=== PATIENT | female | born 1940 | race Caucasian/White ===

== ENCOUNTER 2021-01-25 15:08 | Inpatient (IN) | payer OTHER, BC ==
[~2021-01-25] VITALS: Ht 170.2 cm; Wt 112.0 kg
--- NOTE | ~2021-01-25 | EMS ---
[address] [address] EMS Patient Care Report Name: AMELIA CRUZ Room #: 202-P ADM IN M.R.#: [id number] Admission: 01/25/21 Attend Phys: Sosa Calvillo MD Discharge: Date of : 42 Report #: [id number] THIS REPORT FOR: //name// Report Transmitted: 01/27/2021 11:41 EMS Care Summary [place], [place]/[facility] Incident [id number] @ 01/25/2021 14:[address] [place] [address] Patient AMELIA CRUZ Female, 80 Years 1940 Patient Address [address] [place] [id number] Patient History Hypertension (HTN),Morbid Obesity,Type 2 Diabetes,Cellulitis, Patient Allergies Penicillin allergy,Sulfa,Nickel allergy, Patient Medications Melatonin, Hubbard, Lasix, Potassium, Losartan, Nystatin, Prednisone, Diclofenac, Glipizide, Aspirin, Metformin, Chief Complaint SOB Disposition Transported No Lights/[place] Dispatch Reason Breathing Problem Transported To [facility] Narrative SCENE: ON ARRIVAL PT FOUND LYING UPRIGHT IN BED AT ADDRESS PROVIDED. PT IS AWAKE AND ALERT. STAFF REPORTS PT OXYGEN SSATS WERE IN THE 60'S AND THEY HAVE [address] [address] EMS Patient Care Report Name: AMELIA CRUZ Room #: 202-P ADM IN M.R.#: [id number] Admission: 01/25/21 Attend Phys: Sosa Calvillo MD Discharge: Date of : 42 Report #: [id number] BEEN UNABLE TO INCREASE THEM. PT IS ON 3LPM VIA NC PER NORMAL. STAFF REPORTS PT HAS BEEN LIKE THIS FOR ONE HOUR. STAFF ALSO REPORTS PT IS NORMALLY A&0X4, BUT IS NOW UNABLE TO ANSWER SOME QUESTIONS. PT SLID TO EMS STRETCHER. AMBULANCE: PT LUNG SOUNDS WHEEZY THROUGHOUT. PT PLACED ON DUONEB TREATMENT EN ROUTE. IV ATTEMPT UNSUCCESSFUL. VITALS MONITORED. NO OTHER CHANGES Initial Vitals @14:45P: 88,R: 20,BP: 142/100,Pain: 0/10,GCS: 14,Glucose: 114,SpO2: 94,Revised Trauma: 12, @15:02P: 90,R: 18,BP: 146/78,GCS: 15,SpO2: 95,Revised Trauma: 12, Assessments @14:44MENTAL:Other,SKIN:No Abnormalities,HEENT:Head/Face: No Abnormalities,Eyes: No Abnormalities,Neck/Airway: No Abnormalities,LUNG SOUNDS:General: No Abnormalities,Left Upper: No Abnormalities,Right Upper: No Abnormalities,Left Lower: No Abnormalities,Right Lower: No Abnormalities,ABDOMEN:General: No Abnormalities,Left Upper: No Abnormalities,Right Upper: No Abnormalities,Left Lower: No Abnormalities,Right Lower: No Abnormalities,PELVIS//GI:No Abnormalities,EXTREMITIES:Left Arm: No Abnormalities,Right Arm: No Abnormalities,Left Leg: No Abnormalities,Right Leg: No Abnormalities,PULSE:NEURO:No Abnormalities,@15:00MENTAL:No Abnormalities,SKIN:No Abnormalities,HEENT:Head/Face: No Abnormalities,Eyes: No Abnormalities,Neck/Airway: No Abnormalities,LUNG SOUNDS:General: No Abnormalities,Left Upper: No Abnormalities,Right Upper: No Abnormalities,Left Lower: No Abnormalities,Right Lower: No Abnormalities,ABDOMEN:General: No Abnormalities,Left Upper: No Abnormalities,Right Upper: No Abnormalities,Left Lower: No Abnormalities,Right Lower: No Abnormalities,PELVIS//GI:No Abnormalities,EXTREMITIES:Left Arm: No Abnormalities,Right Arm: No Abnormalities,Left Leg: No Abnormalities,Right Leg: No Abnormalities,PULSE:NEURO:No Abnormalities, Impression Acute Respiratory Distress (Dyspnea) Procedures @14:44ALS AssessmentResponse: UnchangedSucceeded@14:51Albuterol - 2.5 Milligrams (mg) - NebulizedResponse: Improved@14:45StretcherResponse: Unchanged@PTAOxygen FlowRate: 3 Response: UnchangedSucceeded@14:55Saline Lock 0cc (18 ga) Site: Hand-LeftResponse: UnchangedFailed@14:51Atrovent - 0.5 Milligrams (mg) - NebulizedResponse: Improved Timeline IRRIGATOR SPRINKLING SYSTEM,Oxygen FlowRate: 3 Response: UnchangedSucceeded, 14:32,Call Received 14:32,Dispatch Notified [address] [address] EMS Patient Care Report Name: AMELIA CRUZ Room #: 202-P [facility] IN .R.#: [id number] Admission: 01/25/21 Attend Phys: Sosa Calvillo MD Discharge: Date of : 42 Report #: [id number] 14:35,Dispatched 14:35,En Route 14:40,On Scene 14:43,At Patient 14:44,ALS Assessment,Response: UnchangedSucceeded, 14:45,Stretcher,Response: Unchanged 14:45,BP: 142/100 M,PULSE: 88,RR: 20 R,SPO2: 94 Ox,ETCO2: ,B,PAIN: 0,GCS: 14, 14:51,Albuterol - 2.5 Milligrams (mg) - Nebulized,Response: Improved 14:51,Atrovent - 0.5 Milligrams (mg) - Nebulized,Response: Improved 14:54,Depart Scene 14:55,Saline Lock 0cc 18 ga Site: Hand-Left,Response: UnchangedFailed, 15:02,BP: 146/78 M,PULSE: 90,RR: 18 R,SPO2: 95 Ox,ETCO2: ,BG: ,PAIN: ,GCS: 15, 15:14,At Destination 15:24,Call Closed Disclaimer v1.1 Copyright 2020 [employer] This EMS Care Summary contains data elements from the applicable legal record (which may be displayed differently). It is designed to provide pertinent information for the following purposes: continuity of care, clinical quality, and state data reporting. The complete legal record is available to ED staff and administrators of the receiving hospital in [employer]s Patient Tracker. All data is provided "as is."
[~2021-01-25 15:08] MED LIST: AMBIEN 5 MG TABL5 M1 PO; ASPIRIN325 PO; CENTRUM SILVER1 EAC4 PO; GLIPIZIDE XL5 MG PO; METFORMIN HCL500 MG PO; ZOCOR20 MG PO
[2021-01-25 15:56] LABS: BE(vivo) 14.7 mmol/L (-2 to +3); HCO3 45.6 mmol/L (22.0-26.0); PCO2 97.6 mmHg (35.0-45.0); PO2 237.4 mmHg (80.0-100.0); pH 7.287 (7.360-7.450); sO2 99.4 % (92.0-98.0)
[2021-01-25 16:07] LABS: EOSINOPHILS 3.4 % (0.0-3.0); HEMATOCRIT 37.6 % (37.0-47.0); LYMPHOCYTES 20.1 % (24.0-44.0); MCH 29.8 pg (26.0-34.0); MCHC 31.8 g/dL (28.0-37.0); MCV 93.9 fL (80.0-100.0); MONOCYTES 7.7 % (1.0-8.0); PLATELET COUNT 210 thou/uL (150-400); POLYS 67.8 % (36.0-66.0); RBC 4.01 mil/uL (4.20-5.00); RDW 20.1 % (10.5-14.5); WBC 4.5 thou/uL (4.0-11.0)
[2021-01-25 16:26] LABS: CALCIUM 7.8 mg/dL (8.5-10.1); CREATININE 1.2 mg/dL (0.6-1.0); POTASSIUM 4.2 mmol/L (3.5-5.1)
--- NOTE | 2021-01-25 16:38 | NUR ---
JUAN J SERRA SWETHA [phone]
[2021-01-25 16:40] LABS: ALBUMIN 3.1 g/dL (3.4-5.0); TOTAL BILIRUBIN 1.3 mg/dL (0.2-1.0); TOTAL PROTEIN 5.9 g/dL (6.4-8.2)
[2021-01-25 17:08] LABS: BE(vivo) 13.5 mmol/L (-2 to +3); HCO3 42.7 mmol/L (22.0-26.0); PCO2 83.1 mmHg (35.0-45.0); PO2 97.2 mmHg (80.0-100.0); pH 7.329 (7.360-7.450); sO2 96.6 % (92.0-98.0)
--- NOTE | 2021-01-25 17:29 | NUR ---
THIS RN MET WITH PT'S NIECE IN WAITING RM WHO STATED SHE NEEDED TO GIVEN MORE INFORMATION REGARDING PT'S HEALTH. NIECE CALLED ANOTHER NIECE ON THE PHONE WHO APPARENTLY "WORKS IN THE MEDICAL FILED AND A NURSE" AND KNOWS A LOT OF PT'S HEALTH INFORMATION. PER NIECE, PT WAS ADMITTED AT [facility] ON December PNUEMONIA AFTER ADMISSION AT [facility] IN SAME MONTH FOR PNEUMONIA, SEPSIS, CELLULITIS OF R LEG, BED SORE, HYPOXIA AND INSFLAMMED PERINEAL AREA. ON December, PT WAS ADMITTED AT [facility], TESTED POSITIVE FOR COVID. PT SENT TO [facility] FROM 01/06-01/16. RECEIVED 5 DAYS TRMT WITH REMDESIVIR, ALSO GOT TREATED FOR CELLULITIS OF LEFT LEG. DISCHARGED ON Jan, TO [facility]. HAD CONSISTENT ELEVATED C02 LEVELS FOR SEVERAL DAYS AT [place] WHICH THE DOCTOR AT FACILITY STATED WAS RELATED TO HER DX SLEEP APNEA. PER NIECE, PT FELL OFF FROM BED YESTERDAY, POOR APPETITE SINCE WEDNESDAY AND LOW BP TODAY 90'S/50'S. ALL THIS WERE COMMUNICATED WITH ERP.
[2021-01-25 17:31] LABS: ANISOCYTOSIS 2+
[2021-01-25 18:18] LABS: URINE BILIRUBIN 2+ (Negative); URINE BLOOD TRACE (Negative); URINE CLARITY CLEAR; URINE COLOR YELLOW; URINE GLUCOSE-RANDOM* 3+ (Negative); URINE KETONES 1+ (Negative); URINE LEUKOCYTES-REFLEX NEGATIVE (Negative); URINE NITRITE-REFLEX NEGATIVE (Negative); URINE PROTEIN (DIPSTICK) 2+ (Negative); URINE SPECIFIC GRAVITY >= 1.030 (1.005-1.035); URINE UROBILINOGEN 0.2 E.U./dl (0.2-1.0)
[2021-01-25 18:31] LABS: ICTOTEST (BILI CONFIRMATORY) Positive (Negative)
--- NOTE | 2021-01-25 18:33 | NUR ---
ML PLACED IN ER FOR LABS AND IVF
[2021-01-25 18:38] LABS: SQUAMOUS 0-3 Few /LPF (0-3)
[2021-01-25 18:39] LABS: CALCIUM OXALATE 0-3 Few /LPF (None Seen); COARSE GRANULAR CASTS 0-3 Few /LPF (None Seen); MUCUS 4-6 Moderate strn/LPF (None Seen); URINE RBC 1-2 Rare /HPF (NONE SEEN); URINE WBC-REFLEX 0-5 Rare /HPF (0-5)
[2021-01-25 19:00] LABS: APTT 22.2 Seconds (24.5-32.8); D-DIMER 1.34 ug/mLFEU (0.19-0.50); INR 1.11
--- NOTE | 2021-01-26 02:43 | NUR ---
PER Gino CHEN RN, PT DOES NOT REQUIRE COVID ISOLATION.
[2021-01-26 06:07] VITALS: BP 140/56
[2021-01-26 06:15] VITALS: BP 112/80
--- NOTE | 2021-01-26 06:15 | NUR ---
79 Y/O PT ADMITTED TO CCU FROM ER ON BIPAP. FOLLOWS SIMPLE COMMANDS. HELPS TO TURN. COCCYX AREA VERY REDDENED. PREVACARE CREAM APPLIED. ESCALONA INTACT. PROGRESSING TOWARTD GOALS WILL CONT TO MONITOR
[2021-01-26 08:00] LABS: HEMATOCRIT 35.8 % (37.0-47.0); HEMOGLOBIN 11.1 gm/dL (12.0-15.0); MCH 29.6 pg (26.0-34.0); MCV 95.3 fL (80.0-100.0); RBC 3.76 mil/uL (4.20-5.00); RDW 19.2 % (10.5-14.5); WBC 4.8 thou/uL (4.0-11.0)
[2021-01-26 08:08] LABS: CALCIUM 7.7 mg/dL (8.5-10.1); CREATININE 1.3 mg/dL (0.6-1.0); POTASSIUM 3.4 mmol/L (3.5-5.1)
[2021-01-26 11:30] VITALS: BP 129/55
[2021-01-26] MEDS ORDERED: XANAX 0.25 MG0.25 MG PO (11:44)
[2021-01-26] MEDS ORDERED: CARVEDILOL12.5 MG PO (11:45)
[2021-01-26] MEDS ORDERED: CELEXA 20 MG TA20 MG PO (11:45)
[2021-01-26] MEDS ORDERED: DEPAKOTE 250MG250 M1 PO (11:46)
[2021-01-26] MEDS ORDERED: COLACE100 MG PO (11:47)
[2021-01-26] MEDS ORDERED: LOVENOX40 MG/0.4 (11:47)
[2021-01-26] MEDS ORDERED: JARDIANCE25 MG (11:48)
[2021-01-26] MEDS ORDERED: VYZULTA5 ML (11:49)
[2021-01-26] MEDS ORDERED: COZAAR 25 MG TA25 M1 (11:49)
[2021-01-26] MEDS ORDERED: NYSTATIN1 EA10 (11:50)
[2021-01-26] MEDS ORDERED: MELATONIN3 M1 (11:50)
[2021-01-26] MEDS ORDERED: METFORMIN HCL500 M3 (11:50)
[2021-01-26] MEDS ORDERED: PROTONIX 20 MG20 MG (11:51)
[2021-01-26] MEDS ORDERED: SIMVASTATIN80 MG (11:52)
[2021-01-26] MEDS ORDERED: PREDNISOLONE ACE5 ML RT. EYE (11:52)
[2021-01-26] MEDS ORDERED: FLOMAX0.4 MG (11:52)
[2021-01-26] MEDS ORDERED: TERBINAFINE HC250 MG (11:53)
[2021-01-26] MEDS ORDERED: TRAZODONE HCL50 MG (11:53)
[2021-01-26 16:27] VITALS: BP 130/51
[2021-01-26 20:07] VITALS: BP 147/49
--- NOTE | 2021-01-27 03:23 | NUR ---
RECEIVED PATIENT ON BED, ALERT AND ORINETED X4.ON NASAL CANNULA AT 3LPM, SATURATING WELL.WITH MIDLINE AT RIGHT FOREARM INTACT.WITH ESCALONA CATHETER INTACT.NOT IN PAIN OR DISTRESS.STANDARD PRECAUTION OBSERVED.ALL NEEDS ATTENDED.FALL PREVENTION MEASURES MAINTAINED
[2021-01-27 04:55] LABS: ABSOLUTE NEUTROPHILS 3.4 thou/uL (1.4-8.2); BASOPHILS 0.1 % (0.0-2.0); EOSINOPHILS 0.1 % (0.0-3.0); HEMOGLOBIN 10.2 gm/dL (12.0-15.0); LYMPHOCYTES 9.9 % (24.0-44.0); MCH 30.1 pg (26.0-34.0); MCHC 31.9 g/dL (28.0-37.0); MCV 94.6 fL (80.0-100.0); MONOCYTES 3.8 % (1.0-8.0); PLATELET COUNT 153 thou/uL (150-400); POLYS 86.1 % (36.0-66.0); RBC 3.38 mil/uL (4.20-5.00); RDW 18.9 % (10.5-14.5)
[2021-01-27 05:06] LABS: ALBUMIN 2.8 g/dL (3.4-5.0); CALCIUM 7.4 mg/dL (8.5-10.1); CREATININE 1.1 mg/dL (0.6-1.0); MAGNESIUM 1.6 mg/dL (1.8-2.4); PHOSPHORUS 3.6 mg/dL (2.5-4.9); POTASSIUM 4.2 mmol/L (3.5-5.1); TOTAL BILIRUBIN 0.7 mg/dL (0.2-1.0); TOTAL PROTEIN 5.1 g/dL (6.4-8.2)
[2021-01-27 05:27] VITALS: BP 151/66
--- NOTE | 2021-01-27 07:32 | EKG ---
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: [place] : 1940 Requested By: Best Almaraz Order Number: [id number] MD: Ángel Macario Measurements Intervals [place] Rate: 86 P: 47 [place]: 121 QRS: -2 QRSD: 80 T: 82 QT: 456 QTc: 546 Interpretive Statements Sinus rhythm Borderline repolarization abnormality Prolonged QT interval Compared to ECG 01/04/2014 06:33:40 Prolonged QT interval now present T-wave abnormality no longer present Electronically Signed On 01-27-2021 7:32:23 CDT by Ángel Macario [email or web address] <ELECTRONICALLY SIGNED> By: Ángel Macario MD, [facility] 01/27/21 0732 1556 1556 Ángel Macario MD, FACC /EPI
[2021-01-27 07:35] VITALS: BP 118/56
[2021-01-27 11:35] VITALS: BP 106/60
--- NOTE | 2021-01-27 12:01 | NUR ---
Notification of very reddened coccyx. Admit from facility w/ SOA, hx covid. Hx diabetes, SARA, HTN, copd. On NC and tolerating meals fairly well. Wt is obese, BMI 37. Will add carb control to diet order for BG in 200s. Add 1 glucerna shake per day. Otherwise low nutrition risk
--- NOTE | 2021-01-27 12:14 | 2DMMODE ---
[facility] [place] [address] 2 D/M-MODE ECHOCARDIOGRAM Name: AMELIA CRUZ Room #: 202-P ADM IN M.R.#: [id number] Admission: 01/25/21 Attend Phys: Sosa Calvillo MD Discharge: Date of : 41 Report #: [id number] THIS REPORT FOR: cc: John Acosta MD, Shyam MD Park, Jin S. MD ~ APPROVED REPORT Study performed: 01/27/2021 10:55:08 EXAM: Comprehensive 2D, Doppler, and color-flow Echocardiogram Patient Location: Bedside Room #: 202 Status: routine BSA: 2.19 HR: 85 bpm BP: 118/56 mmHg Rhythm: NSR Other Information Study Quality: Adequate Indications Short of breath, hypoxia. Hx: known CHF. Hx: COPD, HTN, HLP, DM, COVID-19. 2D Dimensions RVDd: 36.16 mm IVSd: 11.32 (7-11mm) LVOT Diam: 19.06 (18-24mm) LVDd: 42.18 mm PWd: 10.52 (7-11mm) Ascending Ao: 30.32 (22-36mm) LVDs: 31.56 (25-40mm) Left Atrium: 39.02 (27-40mm) Aortic Root: 28.58 mm Volumes Left Atrial Volume (Systole) Single Plane 4CH: 34.12 mL Single Plane 2CH: 49.09 mL LA ESV Index: 20.00 mL/m2 Aortic Valve AoV Peak Declan.: 1.58 m/s AO Peak Gr.: 10.01 mmHg LVOT Max P.17 mmHg LVOT Max V: 1.14 m/s [facility] [place] [place] [address] 2 D/M-MODE ECHOCARDIOGRAM Name: CRUZAMELIA Kentrell Room #: 202-P [facility] IN [facility].#: [id number] Admission: 01/25/21 Attend Phys: Sosa Calvillo, Discharge: Date of : 42 Report #: [id number] NICANOR Vmax: 2.05 cm2 Mitral Valve E/A Ratio: 1.4 MV Decel. Time: 203.31 ms MV E Max Declan.: 0.97 m/s MV A Declan.: 0.71 m/s MV PHT: 58.96 ms IVRT: 58.82 ms Pulmonary Valve PV Peak Declan.: 0.78 m/s PV Peak Gr.: 2.46 mmHg Pulmonary Vein P Vein S: 0.40 m/s P Vein A: 0.30 m/s P Vein D: 0.37 m/s P Vein A Dur.: 120.0 msec P Vein S/D Ratio: 1.08 Tricuspid Valve TR Peak Declan.: 3.09 m/s RAP Estimate: 10.00 mmHg TR Peak Gr.: 38.29 mmHg PA Pressure: 48.00 mmHg Left Ventricle The left ventricle is normal size. There is normal LV segmental wall motion. There is normal left ventricular wall thickness. Left ventricular systolic function is normal. LVEF is 55-60%. Moderate diastolic dysfunction is present (pseudonormal filling). Right Ventricle The right ventricle is normal size. The right ventricular systolic function is normal. Atria The left atrium size is normal. The right atrium size is normal. Aortic Valve The aortic valve is normal in structure. No aortic regurgitation is present. There is no aortic valvular stenosis. Mitral Valve The mitral valve is normal in structure. Mild mitral annular calcification. Mild mitral regurgitation. No evidence of mitral valve stenosis. [facility] [address] [place] [address] 2 D/M-MODE ECHOCARDIOGRAM Name: AMELIA CRUZ Room #: 202-P [facility] IN .R.#: [id number] Admission: 01/25/21 Attend Phys: Sosa Calvillo, Discharge: Date of : 41 Report #: [id number] Tricuspid Valve The tricuspid valve is normal in structure. Mild tricuspid regurgitation. Estimated PAP is 43 mmHg. Pulmonic Valve The pulmonary valve is normal in structure. Trace pulmonic regurgitation. Great Vessels The aortic root is normal in size. The ascending aorta is normal in size. IVC is normal in size and collapses <50% with inspiration. Pericardium There is no pericardial effusion. <Conclusion> The left ventricle is normal size. There is normal left ventricular wall thickness. Left ventricular systolic function is normal. Moderate diastolic dysfunction is present (pseudonormal filling). The right ventricle is normal size. The left atrium size is normal. The aortic valve is normal in structure. Mild mitral regurgitation. Mild tricuspid regurgitation. Estimated PAP is 43 mmHg. <ELECTRONICALLY SIGNED> By: Davis Li MD 01/27/21 1214 121 13 Davis Li MD /INF
[2021-01-27 15:30] VITALS: BP 107/49
--- NOTE | 2021-01-27 18:54 | NUR ---
PT WORKED WITH PT AND OT TODAY SAT ON THE SIDE OF THE BED WITH ASSISTANCE. PT COMPLIANED THAT SHE IS HAVING DIFFICULTY SLEEPING AT NIGHT AND WOULD LIKE TO SLEEP DURING THE DAY. SPOKE JUAN J PT NIECE AND SHE STATED THE SLEEPING CONCERN HAS BEEN AN ISSUE IN PREVIOUS FACILITIES AND THE PT STAYS UP AT NIGHT ON A REGULAR BASIS.
[2021-01-27 21:56] VITALS: BP 118/58
[2021-01-28 04:45] VITALS: BP 116/84
[2021-01-28 07:45] VITALS: BP 105/79
[2021-01-28 11:25] VITALS: BP 128/36
[2021-01-28] MEDS ORDERED: IPRAT-ALBUT 0.5-3 ML INH (12:06)
[2021-01-28] MEDS ORDERED: PREDNISONE 20 M20 MG PO (12:06)
[2021-01-28] MEDS ORDERED: LASIX 40 MG TAB40 MG PO (12:06)
[2021-01-28] MEDS ORDERED: VIBRAMYCIN 100100 MG PO (12:17)
[2021-01-28 12:19] LABS: CALCIUM 7.8 mg/dL (8.5-10.1); CREATININE 1.1 mg/dL (0.6-1.0); PHOSPHORUS 2.7 mg/dL (2.5-4.9); POTASSIUM 3.7 mmol/L (3.5-5.1)
--- NOTE | 2021-01-28 12:19 | NUR ---
Met with patient who is A/O reports she has been at [facility] and uses a walker at facility. Patients admit date at [facility] 01[facility]16/[facility]. Patient dc to [facility] due to her COVID status. Patient to dc today. Sp with DPOA Paul who reports he is DPOA for medical and brother DPOA for financial. Both live out of town. Silvia Gabbie is a friend who lives in and involved in her care. They do not want patient to return to [facility]. Paul plans to call Kimber to call casemgt regarding dc planning.
--- NOTE | 2021-01-28 13:15 | NUR ---
Assumed care of pt this AM. Pt is A&O x3, struggles w/ date. SA on the monitor. Pt on 2L NC. Pt got up to eat breakfast but has otherwise been sleeping all day- c/o not being able to sleep at night. Original plan was to d/c today, however Alyssa (niece) called and stated that she didn't want pt going back to [facility]. CM updated. Pt denies any pain. Initated Q2 turns. Will continue to assess pt needs throughout day.
[2021-01-28 16:05] VITALS: BP 115/60
[2021-01-28 19:01] VITALS: BP 116/47
[2021-01-29 01:06] LABS: GLYCOHEMOGLOBIN (HGB A1C) 6.8 % (4.8-5.6)
--- NOTE | 2021-01-29 03:57 | NUR ---
PT MAKING SLOW PROGRESS TOWARDS GOALS. ON O2 AT 2L PER NC. CPAP PLACED OVERNIGHT FOR NOCTURNAL DESAT STUDY. PT OBSERVED TO BE 87% WITHOUT OXYGEN BEING ADDED. O2 ADDED AT 2L AND O2 SATS ALESSANDRA TO 92%. CONTINUE TO MONITOR. LUNGS DIMIISHED THROUGHOUT. PT HAS REFUSED TURNS. ENCOURAGED TO BE OUT OF BED TODAY AND UP TO CHAIR, WITH ASSISTANCE.
[2021-01-29 04:01] VITALS: BP 107/53
[2021-01-29 07:43] VITALS: BP 146/77
[2021-01-29 09:47] LABS: URINE BILIRUBIN NEGATIVE (Negative); URINE BLOOD 3+ (Negative); URINE CLARITY CLOUDY; URINE COLOR YELLOW; URINE GLUCOSE-RANDOM* 1+ (Negative); URINE KETONES TRACE (Negative); URINE NITRITE-REFLEX NEGATIVE (Negative); URINE PROTEIN (DIPSTICK) 2+ (Negative); URINE SPECIFIC GRAVITY 1.025 (1.005-1.035); URINE UROBILINOGEN 0.2 E.U./dl (0.2-1.0)
[2021-01-29 09:51] LABS: URINE LEUKOCYTES-REFLEX 1+ (Negative)
[2021-01-29 09:56] LABS: POTASSIUM 3.9 mmol/L (3.5-5.1)
[2021-01-29 10:35] LABS: CASTS None Seen /LPF (None Seen); CRYSTALS None Seen /LPF (None Seen); SQUAMOUS 4-10 Moderate /LPF (0-3)
[2021-01-29 10:36] LABS: BACTERIA-REFLEX >30 Many /HPF (None Seen); URINE WBC-REFLEX >25 Many /HPF (0-5)
[2021-01-29 10:37] LABS: YEAST-REFLEX Present (None Seen)
[2021-01-29 11:30] VITALS: BP 116/57
[2021-01-29] MEDS ORDERED: LASIX 40 MG TAB40 MG PO (12:04)
[2021-01-29 14:13] VITALS: BP 139/63
--- NOTE | 2021-01-29 14:16 | NUR ---
POST FALL NOTE: witnessed & assisted fall @ 1230 by this nurse, charge nurse, & SEA FOAM KISS MAKER. Pt A&O x4. No injury sustained during fall. Dr Suazo notified.
--- NOTE | 2021-01-29 15:05 | NUR ---
Call rec'd from Kimber this am indicating family would like the pt to go to [facility] and they are working out the finanical arrangements. The pt will be going with skilled orders and they will be working on the medicare snf benefit covid waiver for additional snf days. The pt has used 115 snf days to date. They are willing to pay privately and do part B therapies until that can be approved. Dc orders faxed and confirmed with their liason for admission this afternoon. They are arranging an w/c van transport later today. Chart copy is ready to be sent with the pt and nursing will call report. C of OP aware pt is going to another facility as well as [facility]
[2021-01-29 15:53] VITALS: BP 127/68
[2021-01-29 17:15] VITALS: BP 127/68
--- NOTE | 2021-01-29 17:53 | NUR ---
DISCHARGE NOTE: IV, midline & tele d/c'ed. Pt d/c'ing to facility.
--- NOTE | 2021-01-31 12:37 | HC ---
[facility] [place] [address] CONSULTATION Name: AMELIA CRUZ Room #: 202-P [facility] IN M.R.#: [id number] Admission: 01/25/21 Attend Phys: Sosa Calvillo MD Discharge: 01/29/21 Date of : 42 Report #: [id number] THIS REPORT FOR: cc: John Acosta MD, Shyam MD Althoff,Landry Abbasi MD ~ DATE OF SERVICE: 01/28/2021 DATE OF SERVICE: 01/28/2021 CHIEF COMPLAINT: Gluteal excoriation. HISTORY OF PRESENT ILLNESS: This is a 80-year-old female patient who was admitted to the hospital with hypoxia. She was noted to have some gluteal ulceration. I have been asked to see her in this regard. PAST MEDICAL HISTORY: Positive for history of chronic respiratory failure, COPD, glaucoma, pneumonia, cellulitis, history of COVID-19, depression, hyperlipidemia, hypertension. Positive for type 2 diabetes mellitus as well. PAST SURGICAL HISTORY: Positive for previous hysterectomy. ALLERGIES: PENICILLIN AND SULFA. MEDICATIONS: Include aspirin, metformin, glipizide, simvastatin, multivitamin. SOCIAL HISTORY: Negative for alcohol or tobacco use. FAMILY HISTORY: Noncontributory. REVIEW OF SYSTEMS: CONSTITUTIONAL: Denies fever, chills, or weight loss. NEUROLOGICAL: The patient denies focal weakness. EYES: The patient denies visual changes. ENT: The patient denies earache, nasal drainage, sore throat. CARDIOVASCULAR: The patient denies chest pain or palpitations. PULMONARY: Denies cough or shortness of breath. GASTROINTESTINAL: No nausea or abdominal pain. ORTHOPEDIC: The patient is aware of some ulceration on her buttocks, but does not have significant pain. Others systems in a 14-point review of systems are negative. PHYSICAL EXAMINATION: VITAL SIGNS: At this time include temperature 36.7, pulse 86, respiratory rate 18, blood pressure 128/36. [address] [address] CONSULTATION Name: AMELIA CRUZ Room #: 202-P [facility] IN [facility].#: [id number] Admission: 01/25/21 Attend Phys: Sosa Calvillo MD Discharge: 01/29/21 Date of : 41 Report #: [id number] GENERAL: This is a somewhat chronically ill-appearing female patient who appears in minimal stress. HEENT: Normocephalic. Nose and throat clear. LUNGS: Diminished. HEART: Irregular. ABDOMEN: Soft. Gluteal region demonstrates some excoriations bilaterally. No specific areas of pressure ulceration. LABORATORY DATA: Include sodium 145, potassium 3.7, chloride 104, CO2 of 40, BUN 19, creatinine 1.1. CLINICAL IMPRESSION: 1. Multiple abrasions to the right gluteal region. 2. Acute on chronic hypoxic respiratory failure. 3. Type 2 diabetes mellitus. 4. Hypertension. 5. Hyperlipidemia. 6. Moderate protein-calorie malnutrition with albumin of 2.8. RECOMMENDATIONS: We will recommend moisture barrier cream b.i.d. and p.r.n. to the gluteal region. She will need a low air loss surface with q. 2 hour turning and positioning. Continue medical management of other underlying medical issues, aggressive nutritional support to maximize wound healing. I appreciate being asked to see her in consultation. <ELECTRONICALLY SIGNED> By: Landry Singleton MD 01/31/21 1237 1403 2242 Landry Singleton MD /nt
== END 2021-01-29 18:40 | DRG 177 ==
LOC: ER 15:08 → 2N 21:55 → EROBS 21:55 → 2N 01-26 06:18
PROVIDERS: Emergency Medicine; Hospitalist; Internal Medicine Pulmonary Disease; Nurse Practitioner Family; ADMIT Internal Medicine; ATTEND Internal Medicine
DX: U07.1 COVID-19 (principal); I50.33 Acute on chronic diastolic (congestive) heart failure; J96.21 Acute and chronic respiratory failure with hypoxia; G93.41 Metabolic encephalopathy; J96.22 Acute and chronic respiratory failure with hypercapnia; J12.82 Pneumonia due to coronavirus disease 2019; J44.1 Chronic obstructive pulmonary disease with (acute) exacerbation; E87.0 Hyperosmolality and hypernatremia; N17.9 Acute kidney failure, unspecified; E44.0 Moderate protein-calorie malnutrition; L03.116 Cellulitis of left lower limb; J44.0 Chronic obstructive pulmonary disease with (acute) lower respiratory infection; E11.9 Type 2 diabetes mellitus without complications; Z96.651 Presence of right artificial knee joint; G47.33 Obstructive sleep apnea (adult) (pediatric); F32.9 Major depressive disorder, single episode, unspecified; M25.572 Pain in left ankle and joints of left foot; D63.8 Anemia in other chronic diseases classified elsewhere; E66.01 Morbid (severe) obesity due to excess calories; Z66 Do not resuscitate; R53.81 Other malaise; I87.8 Other specified disorders of veins; E78.2 Mixed hyperlipidemia; J32.9 Chronic sinusitis, unspecified; L30.9 Dermatitis, unspecified; F41.9 Anxiety disorder, unspecified; I27.20 Pulmonary hypertension, unspecified; I11.0 Hypertensive heart disease with heart failure; Z91.19 Patient's noncompliance with other medical treatment and regimen; S30.810A Abrasion of lower back and pelvis, initial encounter; W18.39XA Other fall on same level, initial encounter; Y93.89 Activity, other specified; Y92.89 Other specified places as the place of occurrence of the external cause; Z90.710 Acquired absence of both cervix and uterus; Z90.722 Acquired absence of ovaries, bilateral; Z88.0 Allergy status to penicillin; Z88.2 Allergy status to sulfonamides; Z99.81 Dependence on supplemental oxygen; Z68.37 Body mass index [BMI] 37.0-37.9, adult; Z87.81 Personal history of (healed) traumatic fracture; Y99.8 Other external cause status
CPT/HCPCS: 10081; 27000

== ENCOUNTER 2021-02-11 10:54 | Emergency (ER) | payer OTHER, BC ==
[~2021-02-11] VITALS: Ht 157.5 cm; Wt 117.9 kg
--- NOTE | ~2021-02-11 | EMS ---
[address] [address] EMS Patient Care Report Name: AMELIA CRUZ Room #: DEP ADRIAN Rocha#: [id number] Admission: 02/11/21 Attend Phys: Discharge: 02/11/21 Date of : 41 Report #: [id number] THIS REPORT FOR: //name// Report Transmitted: 02/12/2021 12:36 EMS Care Summary [place], [place]/[facility] Incident [id number] @ 02/11/2021 10:18 Incident Location [facility] ORLY SEPULVEDA F 12 Patient AMELIA CRUZ Female, 80 Years 1940 Patient Address [address] [place] [address] Patient History Hypertension (HTN),Morbid Obesity,Type 2 Diabetes,Cellulitis, Patient Allergies Penicillin allergy,Sulfa,Nickel allergy, Patient Medications Lasix, Aspirin, Nystatin, Losartan, [place], Melatonin, Metformin, Potassium, Diclofenac, Glipizide, Prednisone, Chief Complaint hypoglycemia Disposition Transported No Lights/[place] Dispatch Reason Sick Person Transported To [facility] Narrative Dispatched to a assisted facility in regards to a diabetic emergency. On arrival, I saw patient laying in her bed. Initial assessment revealed that [facility] [address] [place] [address] EMS Patient Care Report Name: AMELIA CRUZ Room #: DEP [facility]#: [id number] Admission: 02/11/21 Attend Phys: Discharge: 02/11/21 Date of : 42 Report #: [id number] patient was A&Ox4 and did not appear to be in respiratory distress. Patients chief complain was generalized weakness. RN stated that patient's BG was 43 when they last checked and had given patient 2 doses of glucagon. RN also stated that they had tried to feed the patient but she kept on vomiting. Physical assessment revealed that patient was pink warm and dry. Patient was transferred to our cot. Patient was secured and lifted into the ambulance. Treatment rendered was obtaining a complete set of baseline vital signs including a blood glucose reading, established vascular access with a saline lock, and administering oral glucose PO and Zofran IV. Patient was transported to [place] and radio report was given. Patient care was transferred on arrival. Initial Vitals @10:35P: 45,R: 16,BP: 138/73,Pain: 0/10,GCS: 15,Glucose: 82,SpO2: 83,Revised Trauma: 12, @10:33P: 86,R: 16,BP: 138/73,Pain: 0/10,GCS: 15,Glucose: 82,SpO2: 98,Revised Trauma: 12, Assessments @10:45MENTAL:Time Oriented,Place Oriented,Event Oriented,Person Oriented,SKIN:HEENT:LUNG SOUNDS:ABDOMEN:PELVIS//GI:EXTREMITIES:PULSE:NEURO:No Abnormalities, Impression Generalized Weakness Procedures @PTAALS AssessmentResponse: UnchangedSucceeded@10:45Oral Glucose - 12 Grams (gms) - OralResponse: Unchanged@10:43Saline Lock 10cc (24 ga) Site: Forearm-LeftResponse: UnchangedSucceeded@10:45Zofran - 2 Milligrams (mg) - Intravenous (IV)Response: Unchanged@10:49Oxygen FlowRate: 6 Device: Nasal Cannula (NC) Response: UnchangedSucceeded Timeline GRID MOLDER,ALS Assessment,Response: UnchangedSucceeded, 10:16,Call Received 10:16,Dispatch Notified 10:18,Dispatched 10:19,En Route 10:25,On Scene 10:27,At Patient 10:33,BP: 138/73 M,PULSE: 86,RR: 16 R,SPO2: 98 Ox,ETCO2: ,B,PAIN: 0,GCS: 15, 10:35,BP: 138/73 M,PULSE: 45,RR: 16 R,SPO2: 83 Ox,ETCO2: ,B,PAIN: 0,GCS: 15, 10:43,Saline Lock 10cc 24 ga Site: Forearm-Left,Response: UnchangedSucceeded, [address] [address] EMS Patient Care Report Name: AMELIA CRUZ Kentrell Room #: [facility] ADRIAN Rocha#: [id number] Admission: 02/11/21 Attend Phys: Discharge: 02/11/21 Date of : 42 Report #: [id number] 10:45,Oral Glucose - 12 Grams (gms) - Oral,Response: Unchanged 10:45,Zofran - 2 Milligrams (mg) - Intravenous (IV),Response: Unchanged 10:48,Depart Scene 10:49,Oxygen FlowRate: 6 Device: Nasal Cannula (NC) Response: UnchangedSucceeded, 10:59,At Destination 11:08,Call Closed Disclaimer v1.1 Copyright 2020 [employer] This EMS Care Summary contains data elements from the applicable legal record (which may be displayed differently). It is designed to provide pertinent information for the following purposes: continuity of care, clinical quality, and state data reporting. The complete legal record is available to ED staff and administrators of the receiving hospital in [employer] Patient Tracker. All data is provided "as is."
[~2021-02-11 10:54] MED LIST changes: +CARVEDILOL12.5 MG PO; +CELEXA 20 MG TA20 MG PO; +COLACE100 MG PO; +COZAAR 25 MG TA25 M1; +DEPAKOTE 250MG250 M1 PO; +FLOMAX0.4 MG; +IPRAT-ALBUT 0.5-3 ML INH; +JARDIANCE25 MG; +LASIX 40 MG TAB40 MG PO; +LOVENOX40 MG/0.4; +MELATONIN3 M1; +METFORMIN HCL500 M3; +NYSTATIN1 EA10; +PREDNISOLONE ACE5 ML RT. EYE; +PREDNISONE 20 M20 MG PO; +PROTONIX 20 MG20 MG; +SIMVASTATIN80 MG; +TERBINAFINE HC250 MG; +TRAZODONE HCL50 MG; +VIBRAMYCIN 100100 MG PO; +VYZULTA5 ML; +XANAX 0.25 MG0.25 MG PO
[2021-02-11 11:54] LABS: BASOPHILS 0.4 % (0.0-2.0); EOSINOPHILS 0.6 % (0.0-3.0); HEMATOCRIT 44.1 % (37.0-47.0); HEMOGLOBIN 13.7 gm/dL (12.0-15.0); MCHC 31.1 g/dL (28.0-37.0); MCV 96.3 fL (80.0-100.0); MONOCYTES 3.8 % (1.0-8.0); PLATELET COUNT 113 thou/uL (150-400); POLYS 88.2 % (36.0-66.0); RBC 4.58 mil/uL (4.20-5.00); RDW 19.1 % (10.5-14.5); WBC 5.7 thou/uL (4.0-11.0)
[2021-02-11 11:57] LABS: URINE BLOOD TRACE (Negative); URINE CLARITY CLEAR; URINE COLOR YELLOW; URINE GLUCOSE-RANDOM* 3+ (Negative); URINE KETONES TRACE (Negative); URINE LEUKOCYTES-REFLEX NEGATIVE (Negative); URINE NITRITE-REFLEX NEGATIVE (Negative); URINE PROTEIN (DIPSTICK) 1+ (Negative); URINE SPECIFIC GRAVITY 1.025 (1.005-1.035); URINE UROBILINOGEN 0.2 E.U./dl (0.2-1.0)
[2021-02-11 12:03] LABS: ICTOTEST (BILI CONFIRMATORY) Negative (Negative); URINE BILIRUBIN NEGATIVE (Negative)
[2021-02-11 12:11] LABS: ANION GAP < 0 mmol/L (7-16); BUN 12 mg/dL (7-18); CALCIUM 8.2 mg/dL (8.5-10.1); CHLORIDE 105 mmol/L (98-107); CO2 40 mmol/L (21-32); GLUCOSE 100 mg/dL (74-106); POTASSIUM 3.8 mmol/L (3.5-5.1); SODIUM 141 mmol/L (136-145)
[2021-02-11 12:11] LABS: BACTERIA-REFLEX 1-9 Few /HPF (None Seen); CRYSTALS None Seen /LPF (None Seen); SQUAMOUS 0-3 Few /LPF (0-3); URINE WBC-REFLEX 6-15 Few /HPF (0-5)
[2021-02-11 12:12] LABS: HYALINE CASTS 0-3 Few /LPF (None Seen); URINE RBC 1-2 Rare /HPF (NONE SEEN)
[2021-02-11 12:13] LABS: YEAST-REFLEX Present (None Seen)
[2021-02-11 12:17] LABS: ALBUMIN 2.9 g/dL (3.4-5.0); SGOT 35 U/L (15-37); SGPT 54 U/L (14-59); TOTAL BILIRUBIN 0.4 mg/dL (0.2-1.0); TOTAL PROTEIN 6.1 g/dL (6.4-8.2)
[2021-02-11] MEDS ORDERED: ZPAK PO (13:31)
[2021-02-11] MEDS ORDERED: DIFLUCAN150 MG PO (13:31)
[2021-02-11 13:38] LABS: ANISOCYTOSIS 1+
[2021-02-11 14:23] VITALS: BP 110/44
== END 2021-02-11 14:23 | disposition home or self-care (01) ==
LOC: ER 10:54
PROVIDERS: Nurse Practitioner
DX: E11.649 Type 2 diabetes mellitus with hypoglycemia without coma (principal); J18.9 Pneumonia, unspecified organism; N39.0 Urinary tract infection, site not specified; N30.90 Cystitis, unspecified without hematuria; G47.30 Sleep apnea, unspecified; E66.01 Morbid (severe) obesity due to excess calories; I11.0 Hypertensive heart disease with heart failure; I50.9 Heart failure, unspecified; F32.9 Major depressive disorder, single episode, unspecified; E78.5 Hyperlipidemia, unspecified; Z79.899 Other long term (current) drug therapy; Z90.710 Acquired absence of both cervix and uterus; Z88.0 Allergy status to penicillin; Z88.2 Allergy status to sulfonamides

== ENCOUNTER 2021-02-13 06:41 | Inpatient (IN) | payer OTHER, BC ==
[~2021-02-13] VITALS: Ht 157.4 cm; Wt 111.4 kg
--- NOTE | ~2021-02-13 | EMS ---
[address] [address] EMS Patient Care Report Name: AMELIA CRUZ Room #: 205-P ADM IN M.R.#: [id number] Admission: 02/13/21 Attend Phys: Shakira Panda Discharge: Date of : 42 Report #: [id number] THIS REPORT FOR: //name// Report Transmitted: 02/14/2021 09:51 EMS Care Summary [place], [place]/[facility] Incident [id number] @ 02/13/2021 06:02 Incident Location [address] [place] [address] Patient AMELIA CRUZ Female, 80 Years 1940 Patient Address [address] [place] [id number] Patient History Hypertension (HTN),Morbid Obesity,Type 2 Diabetes,Cellulitis, Patient Allergies Penicillin allergy,Sulfa,Nickel allergy, Patient Medications [place], Potassium, Melatonin, Aspirin, Lasix, Nystatin, Prednisone, Glipizide, Losartan, Metformin, Diclofenac, Chief Complaint hypoglycemic Disposition Transported No Lights/[place] Dispatch Reason Sick Person Transported To [facility] Narrative Upon arrival PT was laying in the supine position on IL bed. PT had a CC of hypoglycemia. PT was assisted to stretcher and taken o back of ambulance for [address] [address] EMS Patient Care Report Name: AMELIA CRUZ Room #: 205-P ADM IN M.R.#: [id number] Admission: 02/13/21 Attend Phys: Shakira Panda Discharge: Date of : 42 Report #: [id number] further medical evaluation and intervention. PT was then monitored while en route to hospital for any change in condition. Initial Vitals @06:32P: 78,R: 18,BP: 96/62,Pain: 0/10,GCS: 15,Glucose: 66,SpO2: 85,Revised Trauma: 12, @06:15P: 64,R: 18,BP: 90/60,Pain: 0/10,GCS: 15,Glucose: 56,SpO2: 86,Revised Trauma: 12, Assessments @06:11MENTAL:No Abnormalities,SKIN:No Abnormalities,HEENT:Head/Face: No Abnormalities,Eyes: No Abnormalities,Neck/Airway: No Abnormalities,LUNG SOUNDS:General: No Abnormalities,Left Upper: No Abnormalities,Right Upper: No Abnormalities,Left Lower: No Abnormalities,Right Lower: No Abnormalities,ABDOMEN:General: No Abnormalities,Left Upper: No Abnormalities,Right Upper: No Abnormalities,Left Lower: No Abnormalities,Right Lower: No Abnormalities,PELVIS//GI:No Abnormalities,EXTREMITIES:PULSE:Radial: 2+ Normal,NEURO:No Abnormalities, Impression Diabetic Hypoglycemia Procedures @06:11ALS AssessmentResponse: UnchangedSucceeded Timeline 06:01,Call Received 06:01,Dispatch Notified 06:02,Dispatched 06:04,En Route 06:09,On Scene 06:10,At Patient 06:11,ALS Assessment,Response: UnchangedSucceeded, 06:15,BP: 90/60 M,PULSE: 64,RR: 18 R,SPO2: 86 Ox,ETCO2: ,B,PAIN: 0,GCS: 15, 06:30,Depart Scene 06:32,BP: 96/62 M,PULSE: 78,RR: 18 R,SPO2: 85 Ox,ETCO2: ,B,PAIN: 0,GCS: 15, 06:34,At Destination 06:50,Call Closed Disclaimer v1.1 Copyright 2020 [employer] This EMS Care Summary contains data elements from the applicable legal record (which may be displayed differently). It is designed to provide pertinent information for the following purposes: continuity of care, clinical quality, [address] [address] EMS Patient Care Report Name: AMELIA CRUZ Room #: 205-P ADM IN ..#: [id number] Admission: 02/13/21 Attend Phys: Shakira Panda Discharge: Date of : 42 Report #: [id number] and state data reporting. The complete legal record is available to ED staff and administrators of the receiving hospital in [employer] Patient Tracker. All data is provided "as is."
[2021-02-13 06:41] VITALS: BP 85/59
[~2021-02-13 06:41] MED LIST changes: +DIFLUCAN150 MG PO; +ZPAK PO
[2021-02-13 07:12] LABS: BE(vivo) 9.3 mmol/L (-2 to +3); PO2 71.8 mmHg (80.0-100.0); sO2 90.3 % (92.0-98.0)
[2021-02-13 07:16] LABS: HEMATOCRIT 36.9 % (37.0-47.0); MCV 96.7 fL (80.0-100.0); RBC 3.81 mil/uL (4.20-5.00); RDW 18.3 % (10.5-14.5); WBC 2.9 thou/uL (4.0-11.0)
[2021-02-13 07:20] LABS: PCO2 96.7 mmHg (35.0-45.0); pH 7.235 (7.360-7.450)
[2021-02-13 07:22] LABS: HEMOGLOBIN 11.4 gm/dL (12.0-15.0)
[2021-02-13 07:43] LABS: CALCIUM 7.7 mg/dL (8.5-10.1); CREATININE 1.2 mg/dL (0.6-1.0)
[2021-02-13 07:45] LABS: POTASSIUM 4.9 mmol/L (3.5-5.1)
[2021-02-13 08:49] LABS: ABSOLUTE NEUTROPHILS 2.2 thou/uL (1.4-8.2)
[2021-02-13 08:50] LABS: ANISOCYTOSIS 2+; PLATELET COUNT 79 thou/uL (150-400)
[2021-02-13 08:56] VITALS: BP 122/46
[2021-02-13 09:04] LABS: BE(vivo) 6.9 mmol/L (-2 to +3); HCO3 37.1 mmol/L (22.0-26.0); PO2 112.2 mmHg (80.0-100.0); sO2 97.1 % (92.0-98.0)
[2021-02-13 09:06] LABS: PCO2 88.1 mmHg (35.0-45.0); pH 7.242 (7.360-7.450)
[2021-02-13 10:14] VITALS: BP 120/49
[2021-02-13 10:47] VITALS: BP 122/49
--- NOTE | 2021-02-13 11:06 | NUR ---
PT ORIENTED TO ROOM, BED LOW AND MAMADOU, SIDE RAILS UPX3, CALL LIGHT IN REACH, TELE APPLIED. REMIANS ON BIPAP AND PURE WICK IN PLACE. WILL CONTINUE TO ASSESS.
--- NOTE | 2021-02-13 13:43 | NUR ---
Case opened to follow for dc planning. Pt known to from multiple hospital admissions since August this year. Most recently she was dc'd to [facility] for ongoing rehab. She is covid recovered from December/January and has utlized her 100 medicare snf days. She is there on waiver for additional skilled rehab. Pt's son is her dpoa and lives in [place]. He has been updated by the unit RN this morning. Pt's friend Kimber has also been in to visit. The pt was admitted with low blood sugar/bp and needing respiratory support. She is on bipap. [facility] they have been providing bipap for the pt there;however she is often non compliant and takes it off frequently. They will check in to doing a sleep study there as the pt is paying privately for room/board and getting therapy under part B services until they can get medicare skilled waiver in place. The pt's family is hoping she can get well enough to move to [place] closer to the son. Dc time frame is uncertain. Will follow.
[2021-02-13 13:50] LABS: BE(vivo) 9.6 mmol/L (-2 to +3); HCO3 36.5 mmol/L (22.0-26.0); PCO2 61.9 mmHg (35.0-45.0); PO2 154.5 mmHg (80.0-100.0); pH 7.389 (7.360-7.450); sO2 98.9 % (92.0-98.0)
[2021-02-13 15:47] VITALS: BP 114/77
--- NOTE | 2021-02-13 17:00 | NUR ---
TECH REPORTS REITER NOT REGISTERING BLOOD SUGAR GLUCOMETER SAYS TO LOW. GAVE 1 AMP D50 AND ORDER STAT BLOOF GLUCOSE FRPOM LAB. WILL INFORM DR. SILVA.
--- NOTE | 2021-02-13 18:02 | NUR ---
RT WEAN PT OF BIPAP AND IS NOW ON 3L NC HUMIDIFIED.
[2021-02-13 20:15] VITALS: BP 95/59
[2021-02-14 00:04] VITALS: BP 127/83
[2021-02-14 04:45] VITALS: BP 149/58
--- NOTE | 2021-02-14 05:24 | NUR ---
RECEIVED THE PATIENT AT 1900H.PATIENT IS ALERT AND ORIENTED BUT FORGETFUL.ON NASAL CANNULA AT 3LPM, SATURATING MORE THAN 95%NOT IN PAIN OR DISTRESS. RT PLACED PATIENT ON BIPAP BUT PATIENT REFUSED TO USE IT, RT KEPT PATIENT ON NASAL CANNULA AT 3LPM, TOLERATING WELL.ALL NEEDS ATTENDED.TO CONTINOUSLY MONITOR.
[2021-02-14 06:18] LABS: ALBUMIN 2.4 g/dL (3.4-5.0); CALCIUM 7.6 mg/dL (8.5-10.1); CREATININE 1.2 mg/dL (0.6-1.0); PHOSPHORUS 2.9 mg/dL (2.5-4.9); POTASSIUM 4.8 mmol/L (3.5-5.1)
[2021-02-14 08:10] VITALS: BP 150/59
[2021-02-14 09:54] LABS: HEMATOCRIT 35.1 % (37.0-47.0); HEMOGLOBIN 11.2 gm/dL (12.0-15.0); MCH 30.2 pg (26.0-34.0); MCHC 31.9 g/dL (28.0-37.0); MCV 94.9 fL (80.0-100.0); RBC 3.7 mil/uL (4.20-5.00); RDW 18.3 % (10.5-14.5); WBC 2.8 thou/uL (4.0-11.0)
[2021-02-14 11:30] VITALS: BP 128/57
[2021-02-14 11:52] VITALS: BP 121/43
--- NOTE | 2021-02-14 13:54 | NUR ---
No weekend dc anticipated. [facility] can accept her back when ready. Their liason if availble to make arrangements if ready this weekend [phone] or [phone]. Visited with the pt at bedside this am and she is aware of the dc plan and agreeable. She was eating lunch and was alert and conversant. Kimber will be by later today. Will follow.
--- NOTE | 2021-02-14 14:50 | NUR ---
TOOK OVER CARE FOR THIS PATIENT AT 0700. PATIENT RESTING IN BED. PATIENT WEARING 3 L OXYGEN VIA NC BUT IS NON COMPLIANT WITH WEARING THE OXYGEN; PROVIDED PATIENT EDUCATION. PATIENT ALERT BUT CONFUSED. PATIENT DENIES SOA OR CHEST PAIN. PATIENT DENIES PAIN. CALL LIGHT WITHIN REACH, FALL PRECAUTIONS IN PLACE. PATIENT DENIES ANY ADDITIONAL NEEDS.
[2021-02-14 19:29] VITALS: BP 133/68
--- NOTE | 2021-02-15 01:47 | NUR ---
ASSUMED PT CARE AT 1900, PT IS AWAKE, ALERT AND ORIENTEDX4, FORGETFUL AT TIME, ASSESSMENT CHARTED, MEDS GIVEN PER JUL, ALL FALL PRECAUTIONS IN PLACE; G8COJAS MAINTAINED; NO NEEDS AT THIS TIME, WILL CONTINUE TO MONITOR
[2021-02-15 03:27] VITALS: BP 118/57
[2021-02-15 03:53] LABS: ALBUMIN 2.7 g/dL (3.4-5.0); CALCIUM 7.8 mg/dL (8.5-10.1); CREATININE 1.2 mg/dL (0.6-1.0); PHOSPHORUS 3.9 mg/dL (2.6-4.7); POTASSIUM 4.2 mmol/L (3.5-5.1)
[2021-02-15 08:00] VITALS: BP 135/67
[2021-02-15 12:00] VITALS: BP 122/49
[2021-02-15 16:00] VITALS: BP 132/67
--- NOTE | 2021-02-15 17:28 | NUR ---
TOOK OVER CARE FOR PATIENT AT 0700. PATIENT RESTING IN BED; HAS BEEN SLEEPING THROUGHOUT THE DAY. DENIES ANY NEEDS OR PAIN AT THIS TIME. PATIENT WEARING 3 L NC OXYGEN. DENIES SOA. FALL PRECAUTIONS IN PLACE AND CALL LIGHT WITHIN REACH. PATIENT FORGETFUL AT TIME AND NEEDS PROMPTING TO DO TASKS INDEPENDENTLY THAT SHE CAN PERFORM.
[2021-02-15 19:00] VITALS: BP 118/53
--- NOTE | 2021-02-16 03:00 | NUR ---
PT IS ALERT AND ORIENTED X2. PERSON AND SITUATION OTHERWISE CONFUSED. LUNGS ARE DIMINISHED. PT IS OBESE BOWEL SOUNDS HYPOACTIVE X4. BLOOD SUGAR WAS COVERED AT BEDTIME AND BEDTIME SNACK GIVEN TO PT. ON 3 LITERS NASAL CANULA. DENIES ANY COMPLAINTS OF PAIN AND CALL LIGHT WITHIN REACH IF NEEDS ASSISTANCE PER NURSING.
[2021-02-16 04:34] VITALS: BP 150/61
[2021-02-16 04:55] LABS: HEMATOCRIT 34.9 % (37.0-47.0); HEMOGLOBIN 11.1 gm/dL (12.0-15.0); MCH 30.2 pg (26.0-34.0); MCHC 31.7 g/dL (28.0-37.0); MCV 95.3 fL (80.0-100.0); RBC 3.67 mil/uL (4.20-5.00); RDW 17.9 % (10.5-14.5); WBC 4.3 thou/uL (4.0-11.0)
[2021-02-16 07:55] VITALS: BP 139/67
[2021-02-16 13:01] VITALS: BP 127/63
[2021-02-16 15:30] VITALS: BP 125/60
--- NOTE | 2021-02-16 17:41 | NUR ---
Assumed pt care at 7am.Pt in bed resting without c/o. Assessment completed. vss.Assisted pt with tray setup at [facility]. Fair appetite noted. Pt took meds as ordered and well tolerated.Family here to visit,updates given. wanted to be notify tonite if pt refused bipap. Pt on o2 at 3lnc most of the times. No soa noted. Fall bundle in place.Will continue to monitor.
[2021-02-16 19:31] VITALS: BP 121/50
[2021-02-17 02:42] LABS: URINE BILIRUBIN NEGATIVE (Negative); URINE BLOOD 1+ (Negative); URINE CLARITY CLOUDY; URINE COLOR YELLOW; URINE GLUCOSE-RANDOM* 3+ (Negative); URINE KETONES TRACE (Negative); URINE LEUKOCYTES-REFLEX 1+ (Negative); URINE NITRITE-REFLEX NEGATIVE (Negative); URINE PROTEIN (DIPSTICK) 1+ (Negative); URINE SPECIFIC GRAVITY 1.025 (1.005-1.035); URINE UROBILINOGEN 0.2 E.U./dl (0.2-1.0)
[2021-02-17 03:10] LABS: BACTERIA-REFLEX None Seen /HPF (None Seen); CASTS None Seen /LPF (None Seen); CRYSTALS None Seen /LPF (None Seen); MUCUS 0-3 Light strn/LPF (None Seen); SQUAMOUS None Seen /LPF (0-3); URINE RBC 3-10 Few /HPF (NONE SEEN); URINE WBC-REFLEX 6-15 Few /HPF (0-5); YEAST-REFLEX Present (None Seen)
[2021-02-17 04:33] VITALS: BP 135/75
[2021-02-17 05:08] LABS: ALBUMIN 2.5 g/dL (3.4-5.0); PHOSPHORUS 3.8 mg/dL (2.6-4.7); POTASSIUM 3.9 mmol/L (3.5-5.1)
--- NOTE | 2021-02-17 06:30 | NUR ---
ASSUMED PT CARE AT 1900, ALERT AND ORIENTED, FRIEND AT BEDSIDE, ASSESSMENTS CHARTED, SA ON TELE, DENIES PAIN OR SOA, MEDS GIVEN PER MARM PT REMAINED ON BIPAP ALL NIGHT, TOLERATED WELL, FALL PRECAUTTIONS IN PLACE; NO NEEDS AT THIS TIME, WILL PASS ON REPORT
[2021-02-17 08:00] VITALS: BP 133/60
[2021-02-17] MEDS ORDERED: LEVOFLOXACIN500 MG PO (08:22)
[2021-02-17 12:10] VITALS: BP 129/59
--- NOTE | 2021-02-17 12:20 | NUR ---
CALLED REPORT TO NURSE SHARON GUZMAN.
--- NOTE | 2021-02-17 17:44 | NUR ---
Patient to dc to [facility] today. Chart copied. Stretcher van arranged. Bipap orders faxed to facility and left in envelope at desk for rosalio Quiroga. Plan for patient to dc from [facility] to [place] to be closer to son. Possible plan for Bipap for patient at discharge from [facility]. Kimber aware of dc and time frame. Rn has number for report no further needs.
== END 2021-02-17 14:33 | DRG 871 ==
LOC: ER 06:41 → 2N 08:41 → EROBS 08:41 → 2N 10:14
PROVIDERS: Emergency Medicine; ADMIT Hospitalist; ATTEND Hospitalist
PROC: 5A09357 Assistance with Respiratory Ventilation, Less than 24 Consecutive Hours, Continuous Positive Airway Pressure (ICD-10-PCS; principal; 2021-02-13)
PROC: 5A09357 Assistance with Respiratory Ventilation, Less than 24 Consecutive Hours, Continuous Positive Airway Pressure (ICD-10-PCS; 2021-02-14)
PROC: 5A09357 Assistance with Respiratory Ventilation, Less than 24 Consecutive Hours, Continuous Positive Airway Pressure (ICD-10-PCS; 2021-02-17)
DX: A41.9 Sepsis, unspecified organism (principal); J18.9 Pneumonia, unspecified organism; J96.21 Acute and chronic respiratory failure with hypoxia; J96.22 Acute and chronic respiratory failure with hypercapnia; G93.41 Metabolic encephalopathy; Z68.42 Body mass index [BMI] 45.0-49.9, adult; E11.649 Type 2 diabetes mellitus with hypoglycemia without coma; Z96.651 Presence of right artificial knee joint; E66.01 Morbid (severe) obesity due to excess calories; I50.9 Heart failure, unspecified; F32.9 Major depressive disorder, single episode, unspecified; E78.2 Mixed hyperlipidemia; I11.0 Hypertensive heart disease with heart failure; I95.9 Hypotension, unspecified; G47.33 Obstructive sleep apnea (adult) (pediatric); D64.9 Anemia, unspecified; Z20.822 Contact with and (suspected) exposure to COVID-19; Z90.710 Acquired absence of both cervix and uterus; Z90.722 Acquired absence of ovaries, bilateral; Z88.2 Allergy status to sulfonamides; Z88.0 Allergy status to penicillin; Z82.49 Family history of ischemic heart disease and other diseases of the circulatory system; Z91.19 Patient's noncompliance with other medical treatment and regimen; Z79.899 Other long term (current) drug therapy; Z28.21 Immunization not carried out because of patient refusal
CPT/HCPCS: 10081